=== PATIENT | male | born 1945 | race Caucasian/White ===

== ENCOUNTER 2017-02-10 12:25 | Inpatient (IN) ==
[2017-02-10 12:54] LABS: Basophils % 0.2 % (0.0-0.8); Eosinophils % 0.1 % (0.00-10.9); Hematocrit 39.9 VOL% (42.0-52.0); Hemoglobin 13.4 GM/DL (14.0-18.0); Immature Granulocytes % 0.9 %; Immature Granulocytes Absolute 0.19 #; Lymphocytes # 1.6 10*3/uL (1.4-4.0); Lymphocytes % 7.5 % (21.2-54.2); Mean Corpuscular HGB Conc 33.6 GM/DL (32-36); Mean Corpuscular Hemoglobin 28 PG (27-34); Mean Corpuscular Volume 83.5 FL (87-102); Mean Platelet Volume 10.1 FL (9.6-12.0); Monocytes # 1.2 10*3/uL (0.11-0.8); Monocytes % 5.7 % (1.7-12.7); Neutrophils # 18.7 10*3/uL (1.4-7.4); Neutrophils % 85.6 % (38.7-73.9); Platelet Count 210 T/CUMM (130-400); Red Blood Count 4.78 MC/CUMM (3.8-5.5); Red Cell Distribution Width 15.4 % (9.3-17.3); White Blood Count 21.8 T/CUMM (4-12)
[2017-02-10 13:18] LABS: Eosinophils 1 % (0-10); Lymphocytes 10 % (20-55); Platelet Estimate Adequate; Segmented Neutrophils 83 % (50-85)
[2017-02-10 13:19] LABS: Total Cells Counted 100
--- NOTE | 2017-02-10 13:29 | XRay Report ---
Portable chest Date: 02/10/2017 Clinical history: Generalized abdominal pain Comparison: 08/06/2011 Technique: Portable AP sitting chest Findings: The heart is borderline in size with more prominent left cardiac fat pad. Chronic scarring in the lungs with minimal atelectasis. Calcified granulomata. Stable mediastinum and osseous structures. Impression: Borderline cardiomegaly with more prominent left cardiac fat pad. Progressive atelectasis/infiltration at the left lung base. Follow-up chest x-ray may be helpful for further evaluation. PROCEDURE INTERPRETED AT [facility] DEPARTMENT OF RADIOLOGY Final Report Signed by: Dr. Stephani Garcia
--- NOTE | 2017-02-10 13:30 | XRay Report ---
XR abdomen 2V Indication: Abdominal pain. Abdomen 3 views: No comparison. Obesity required multiple imaging. No small bowel dilatation. Normal amount of stool and gas is seen in the colon. No suggestion of free air. Impression: Unremarkable bowel gas pattern. PROCEDURE INTERPRETED AT [facility] DEPARTMENT OF RADIOLOGY Final Report Signed by: Dalton Ho M.D.
[2017-02-10 13:32] LABS: Alanine Aminotransferase 20 U/L (16-61); Albumin 2.7 G/DL (3.4-5.0); Alkaline Phosphatase 87 U/L (45-117); Amylase 16 U/L (25-115); Aspartate Amino Transferase 11 U/L (0-37); Blood Urea Nitrogen 22 MG/DL (7-18); Calcium 8.6 MG/DL (8.5-10.1); Glucose 279 MG/DL (74-106); Magnesium 1.7 MG/DL (1.8-2.4); Osmolality,Calculated 280.2 MOS/KG (273-304); Potassium 3.5 MMOL/L (3.5-5.1); Sodium 134 MMOL/L (136-145); Total Protein 6.1 G/DL (6.4-8.3); Troponin I Only < 0.015 NG/ML (0.00-0.045)
--- NOTE | 2017-02-10 14:57 | Ultrasound Report ---
Exam: US gallbladder Date: 02/10/2017 1:38 PM Comparison: None Indication: Right upper quadrant pain Technique:[Multiple transabdominal real-time scans were obtained of the right upper quadrant. Color-flow scans obtained. Ultrasound images were captured and stored.] Findings: Hyperechoic foci in the gallbladder with posterior acoustical shadowing. Some of the gallstones do not move including a 13 mm finding the neck of the gallbladder. Wall of gallbladder measures 4.3 mm. CBD is normal in size measuring 5 mm. The liver is normal in size with fatty infiltration. Right kidney measures 104 mm complex no mass or hydronephrosis. The pancreas, aorta including the aortic bifurcation, and IVC are secured by bowel gas. Color flow documented in portal vein. Impression: Scans limited by patient's body size. Cholelithiasis. Gallstone in the neck of the gallbladder which does not move with minimal gallbladder wall thickening which could be related possible cholecystitis. Biliary scan with ejection fraction may be helpful for further evaluation. Fatty infiltration of the liver with pancreas and aorta obscured by bowel gas. PROCEDURE INTERPRETED AT [facility] DEPARTMENT OF RADIOLOGY Final Report Signed by: Dr. Stephani Garcia
--- NOTE | 2017-02-10 15:34 | Emergency Department Note ---
Arrival - Arrival Chief Complaint: Abdominal / Flank Pain Stated Complaint: rt side pain, n/v ED Nursing Triage Note: Pt c/o right sided abd pain with nausea and vomiting since Friday night. Pt is diaphoretic at triage. Mode of Arrival: Ambulatory Time Seen by Provider: 02/10/17 14:51 - History of Present Illness HPI Narrative: - History of Present Illness 71-year-old white male presents to ED with CC of: Right upper quadrant abdominal pain, nausea, vomiting, 3 day Fever: Has not checked temperature, afebrile in triage, complains of chills alternating with sweats over the weekend Keeping fluids down: yes Normal urine output: Decreased due to decreased intake PCP: Dr. Spencer PMHx: HTN, NIDDM, DVT, pulmonary embolism, GERD mass on kidney, Dr. Putnam is watching Allergies/Adverse Reactions: Allergies Allergy/AdvReac Type Severity Reaction Status Date / Time No Known Allergies Allergy Verified 06/08/15 14:46 Home Medications: Home Medications Medication Instructions Recorded Confirmed Type Lisinopril [Lisinopril] 10 mg PO DAILY 06/08/15 02/10/17 History dilTIAZem HCl [Diltiazem ER (24 240 mg PO DAILY 06/08/15 02/10/17 History hr)] hydroCHLOROthiazide 12.5 mg PO DAILY 06/08/15 02/10/17 History [Hydrochlorothiazide] metFORMIN [Glucophage] 500 mg PO BID W/MEALS 06/08/15 02/10/17 History Aspirin EC Tab 325 mg PO DAILY 02/29/16 02/10/17 History Fluoxetine HCl [Prozac] 40 mg PO DAILY 02/29/16 02/10/17 History Gluc Van/Chondro Van A/Vit C/Mn 1 each PO BID 02/29/16 02/10/17 History [Glucosamine Chondroitin Tab] Pramipexole [Mirapex] 0.25 mg PO BEDTIME 02/29/16 02/10/17 History glipiZIDE [Glipizide Xl] 5 mg PO DAILY 02/10/17 02/10/17 History Review of System - Review of System 12 point system: reviewed and no additional remarkable complaints except as stated - Review of System Constitutional: Present: chills, diaphoresis Gastrointestinal: Present: as per HPI, abdominal pain, nausea, vomiting. Absent : hematemesis, melena, hematochezia Neurological: Present: headache Medical,Surgical,& Family Hx - Medical History Cardio: History of: Hypertension Psychological: History of: Anxiety Disorders Neurology: History of: Vertigo No history of: Seizures HEENT: History of: Ear Problem ([place]), Eye Problem (Wears glasses) Endocrine: History of: Diabetes Mellitus (NIDDM) Respiratory: History of: Pulmonary Embolism (Blood clot traveled from RIGHT leg to lungs) Renal: History of: Renal Problems (has mass on kidney Dr. Putnam is watching for now) Gastrointestinal: History of: GERD Musculoskeletal: History of: Back/Neck Problems (Arthritis pain) - Surgical History HEENT Surgeries: Surgical HX of: Eye Surgery (Cataract surgery bilaterally) Abdominal Surgeries: Surgical HX of: Colonoscopy Reproductive Surgeries: Patient denies;: Genitourinary Surgery Orthopedic Surgeries: Surgical HX of;: Orthopedic Surgery (Microscopic knee surgery LEFT) - Family History Family History: Reports;: Family Heart Disease (Father) - Social History Smoking Status: Never smoker Exam Physical Examination: - General General appearance: alert, in no apparent distress - HEENT Present: atraumatic, normocephalic, normal inspection, PERRL, EOMI, mucous membranes moist - Neck Neck exam: Present: normal inspection, full ROM - Respiratory Respiratory exam: Present: normal lung sounds bilaterally - Cardiovascular Cardiovascular exam: Present: regular rate, normal rhythm, normal heart sounds - Abdominal Exam Abdominal exam: Present: soft, tenderness: Yes, RUQ, moderate, normal bowel sounds, positive Stewart sign. Absent: distention, guarding, trauma, - Extremities Exam Extremities exam: Present: normal inspection, full ROM. Absent: pedal edema, joint swelling, calf tenderness - Back Exam Back exam: Present: normal inspection, yes, right upper back - Neurological Exam Neurological exam: Present: alert, oriented X3, no neuorosensory deficits - Psychiatric Psychiatric exam: Present: normal affect, normal mood - Skin Skin exam: Present: warm, dry, intact Vital Signs: Vital Signs Temperature 98.1 F 02/10/17 17:37 Pulse Rate 77 02/10/17 17:37 Respiratory Rate 18 02/10/17 17:37 Blood Pressure 101/60 02/10/17 17:37 O2 Sat by Pulse Oximetry 93 L 02/10/17 17:37 Course - Consultations Time: 15:25 (Dr. Alvarez notified of pt presence. Said to call Dr. Mas since he has seen patient previously.) Time: 15:30 (Dr. Mas notified of pt presence and status. ) Time: 15:40 (Dr. Mas here. Will admit patient.) Results - Labs CBC & BMP: 02/10/17 12:45 02/10/17 12:45 Lab Results: I have reviewed the patients labs - Impressions CXR: Borderline cardiomegaly with more prominent left cardiac fat pad. Progressive atelectasis/infiltration at the left lung base. Follow-up chest x-ray may be helpful for further evaluation. ABdominal Ultrasound:Scans limited by patient's body size. Cholelithiasis. Gallstone in the neck of the gallbladder which does not move with minimal gallbladder wall thickening which could be related possible cholecystitis. Biliary scan with ejection fraction may be helpful for further evaluation. Fatty infiltration of the liver with pancreas and aorta obscured by bowel gas. - Diagnostic Findings Procedure: Chest x-ray: report reviewed by me (See Impressions above.), KUB x- ray: report reviewed by me (Unremarkable bowel gas pattern.), Ultrasound: report reviewed by me (See Impressions above.) Disposition Clinical Impression: Cholecystitis, acute with cholelithiasis, Obesity (BMI 35.0-39.9 without comorbidity) Case discussed with: patient Disposition: Still a Patient Condition: Stable Time of Disposition: 15:40 (Admit per Dr. Mas)
--- NOTE | 2017-02-10 15:52 | General Surg History&Physical ---
Assessment and Plan - Time spent with patient Time spent with patient: Less than 30 minutes (1) Cholecystitis, acute with cholelithiasis Status: Acute Assessment and plan: We will admit him and place him on IV fluids and IV antibiotics with plans to look at laparoscopic cholecystectomy tomorrow. Procedure and risks including his increased risk of conversion to open procedure because of his advanced age and morbid obesity and chronicity of symptoms were discussed with the patient. He also understands the risk of major complications such as injury to bile ducts or intestinal or liver or major bleeding, etc. Current Visit: Yes (2) Obesity (BMI 35.0-39.9 without comorbidity) Status: Acute Assessment and plan: This increases the chances of perioperative morbidity. He has been evaluated by Dr. Zavaleta for his heart within the last 6 months and by the patient's report had a normal stress test. Current Visit: Yes (3) DVT (deep venous thrombosis) Status: Acute Assessment and plan: He had deep vein thrombosis in the past but is no longer being treated for this. He is on aspirin for this. We will need to make sure that we take precautions for deep vein thrombosis perioperatively Current Visit: Yes Qualifiers: Chronicity: unspecified Laterality: unspecified laterality History of Present Illness Chief complaint: Abdominal pain History of present illness: Mr. Davies is a 71 year old male Who for 4 days has had right upper quadrant abdominal pain. Pain was severe and constant but is actually a little bit better today. This pain does not radiate. This pain is been associated with nausea. He had an ultrasound which showed a gallstone in the neck of his gallbladder and mild gallbladder wall thickening. He has not had fever or chills or jaundice. Home Medications Medication Instructions Recorded Confirmed Type Lisinopril [Lisinopril] 10 mg PO DAILY 06/08/15 02/10/17 History dilTIAZem HCl [Diltiazem ER (24 240 mg PO DAILY 06/08/15 02/10/17 History hr)] hydroCHLOROthiazide 12.5 mg PO DAILY 06/08/15 02/10/17 History [Hydrochlorothiazide] metFORMIN [Glucophage] 500 mg PO BID W/MEALS 06/08/15 02/10/17 History Aspirin EC Tab 325 mg PO DAILY 02/29/16 02/10/17 History Fluoxetine HCl [Prozac] 40 mg PO DAILY 02/29/16 02/10/17 History Gluc Van/Chondro Van A/Vit C/Mn 1 each PO BID 02/29/16 02/10/17 History [Glucosamine Chondroitin Tab] Pramipexole [Mirapex] 0.25 mg PO BEDTIME 02/29/16 02/10/17 History glipiZIDE [Glipizide Xl] 5 mg PO DAILY 02/10/17 02/10/17 History Allergies Allergy/AdvReac Type Severity Reaction Status Date / Time No Known Allergies Allergy Verified 06/08/15 14:46 Medical,Surgical,& Family Hx - Medical History Cardio: History of: Hypertension Psychological: History of: Anxiety Disorders Neurology: History of: Vertigo No history of: Seizures HEENT: History of: Ear Problem ([place]), Eye Problem (Wears glasses) Endocrine: History of: Diabetes Mellitus (NIDDM) Respiratory: History of: Pulmonary Embolism (Blood clot traveled from RIGHT leg to lungs) Renal: History of: Renal Problems (has mass on kidney Dr. Putnam is watching for now) Gastrointestinal: History of: GERD Musculoskeletal: History of: Back/Neck Problems (Arthritis pain) - Surgical History HEENT Surgeries: Surgical HX of: Eye Surgery (Cataract surgery bilaterally) Abdominal Surgeries: Surgical HX of: Colonoscopy Reproductive Surgeries: Patient denies;: Genitourinary Surgery Orthopedic Surgeries: Surgical HX of;: Orthopedic Surgery (Microscopic knee surgery LEFT) - Family History Family History: Reports;: Family Heart Disease (Father) - Social History Smoking Status: Never smoker Exam - Constitutional Vitals: Period Temp Pulse Resp BP Sys/Goins Pulse Ox Last 24 Hr 96.6 F-97.9 F 86-92 20-20 110-117/65-72 96-96 General appearance: no acute distress, morbidly obese - Head Head exam: Present: normocephalic - Eye Eye exam: Absent: scleral icterus Pupils: Present: LARISSA - ENT Mouth exam: Present: normal voice - Neck Neck exam: Present: trachea midline. Absent: thyromegaly - Respiratory Respiratory exam: Present: clear to auscultation bilaterally. Absent: accessory muscle use - Cardiovascular Cardiovascular exam: Present: RRR - GI/Abdominal GI/Abdominal exam: Present: tenderness. Absent: distended, guarding, mass, Stewart's sign, rebound - Back Exam Back exam: Present: normal inspection - Neurological Exam Neurological exam: Present: alert, oriented X3. Absent: motor sensory deficit Speech: Present: normal - Skin Skin exam: Present: normal color - Constitutional Constitutional: Absent: chills, fever(s), weight loss - Cardiovascular Cardiovascular: Absent: chest pain at rest, chest pain with activity, dyspnea, dyspnea on exertion, syncope - Respiratory Respiratory: Absent: cough, dyspnea, hemoptysis, dyspnea on exertion - Gastrointestinal Gastrointestinal: Present: abdominal pain, nausea. Absent: hematemesis, hematochezia, vomiting, jaundice - Genitourinary Genitourinary: Absent: dysuria, hematuria - Musculoskeletal Musculoskeletal: Present: back pain - Neurological Neurological: Absent: focal weakness, syncope - Endocrine Endocrine: Absent: polyuria Hematologic/Lymphatic: Absent: easy bleeding, easy bruising Results - Labs CBC & BMP: 02/10/17 12:45 02/10/17 12:45 Lab Results: I have reviewed the past 24 hour labs - Diagnostic Findings Procedure: Ultrasound: report reviewed by me
[2017-02-10] MEDS ORDERED: GLUCAGON 1 MG VIAL IM PRN (15:55)
[2017-02-10] MEDS ORDERED: DEXTROSE 50% 25 GM/50 ML VIAL IV PRN (15:55)
[2017-02-10] MEDS ORDERED: ONDANSETRON 4 MG/2 ML VIAL IV PRN (15:55)
[2017-02-10] MEDS ORDERED: ACETAMINOPHEN 325 MG TABLET PO PRN (15:55)
[2017-02-10] MEDS ORDERED: MORPHINE 2 MG/1 ML SYRINGE IV PRN (15:55)
[2017-02-10] MEDS: LACTATED RINGERS 1,000 ML IV SCH (17:53)
[2017-02-10] MEDS: PIPERACILLIN/TAZOBACTAM 3,375 MG in SODIUM CHLORIDE 0.9% 100 ML IV SCH (17:53)
[2017-02-11] MEDS: LACTATED RINGERS 1,000 ML IV SCH (01:37)
[2017-02-11] MEDS: PIPERACILLIN/TAZOBACTAM 3,375 MG in SODIUM CHLORIDE 0.9% 100 ML IV SCH ×3 (01:38→16:58)
[2017-02-11 06:22] LABS: Albumin 2.5 G/DL (3.4-5.0); Calcium 8.3 MG/DL (8.5-10.1); Osmolality,Calculated 285.8 MOS/KG (273-304); Potassium 4.2 MMOL/L (3.5-5.1); Total Protein 5.9 G/DL (6.4-8.3)
[2017-02-11 06:50] LABS: Basophils % 0.2 % (0.0-0.8); Eosinophils # 0.1 10*3/uL (0.0-0.87); Eosinophils % 0.3 % (0.00-10.9); Hematocrit 37.7 VOL% (42.0-52.0); Hemoglobin 12.5 GM/DL (14.0-18.0); Immature Granulocytes % 1.2 %; Immature Granulocytes Absolute 0.21 #; Lymphocytes # 1.3 10*3/uL (1.4-4.0); Lymphocytes % 7.3 % (21.2-54.2); Mean Corpuscular HGB Conc 33.2 GM/DL (32-36); Mean Corpuscular Hemoglobin 28 PG (27-34); Mean Corpuscular Volume 84.2 FL (87-102); Mean Platelet Volume 10.7 FL (9.6-12.0); Monocytes # 1.5 10*3/uL (0.11-0.8); Platelet Count 226 T/CUMM (130-400); Red Blood Count 4.48 MC/CUMM (3.8-5.5); Red Cell Distribution Width 15.3 % (9.3-17.3)
--- NOTE | 2017-02-11 07:21 | General Surgery Progress Note ---
Assessment and Plan (1) Cholecystitis, acute with cholelithiasis Status: Acute Assessment and plan: We will admit him and place him on IV fluids and IV antibiotics with plans to look at laparoscopic cholecystectomy tomorrow. Procedure and risks including his increased risk of conversion to open procedure because of his advanced age and morbid obesity and chronicity of symptoms were discussed with the patient. He also understands the risk of major complications such as injury to bile ducts or intestinal or liver or major bleeding, etc. 02/11: He has much less pain and feels better. He is not having fever but did have a low-grade temperature this morning. His white blood cell count is still markedly elevated. I discussed laparoscopic and possible open cholecystectomy with him in detail. Procedure and risks including increased chance of conversion to open procedure and also the small risk of major complications such as injury to common bile duct, bile leaks, bowel injury, liver injury or major bleeding, etc. He understands these risks and wishes to proceed today. I will hold his Lovenox this morning. Current Visit: Yes (2) Obesity (BMI 35.0-39.9 without comorbidity) Status: Acute Assessment and plan: This increases the chances of perioperative morbidity. He has been evaluated by Dr. Zavaleta for his heart within the last 6 months and by the patient's report had a normal stress test. Current Visit: Yes (3) DVT (deep venous thrombosis) Status: Acute Assessment and plan: He had deep vein thrombosis in the past but is no longer being treated for this. He is on aspirin for this. We will need to make sure that we take precautions for deep vein thrombosis perioperatively Current Visit: Yes Qualifiers: Chronicity: unspecified Laterality: unspecified laterality Subjective Patient reports: Present: feels better, pain is less. Absent: nausea, vomiting , shortness of breath, fever Exam - Constitutional Vitals: Period Temp Pulse Resp BP Sys/Goins Pulse Ox Last 24 Hr 96.6 F-99.6 F 77-92 18-20 101-134/60-81 91-96 General appearance: no acute distress, morbidly obese - Eye Eye exam: Absent: scleral icterus - Respiratory Respiratory exam: Absent: accessory muscle use - GI/Abdominal GI/Abdominal exam: Present: soft. Absent: distended, mass, tenderness, rebound Results - Labs CBC & BMP: 02/11/17 05:19 02/11/17 05:19 Lab Results: I have reviewed the past 24 hour labs
--- NOTE | 2017-02-11 07:21 | EKG Report ---
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
[2017-02-11] MEDS ORDERED: GLUCAGON 1 MG VIAL IM PRN ×2 (08:22→12:15)
[2017-02-11] MEDS ORDERED: DEXTROSE 50% 25 GM/50 ML VIAL IV PRN ×2 (08:22→12:15)
--- NOTE | 2017-02-11 09:08 | Hospitalist Consult Note ---
Assessment and Plan (1) Diabetes mellitus, type II Status: Acute Assessment and plan: Noted elevation in blood sugars since admission. We will obtain a hemoglobin A1c, start Accu-Cheks with sliding scale coverage, and consult diabetes management. The patient is n.p.o. we will manage the patient with insulin for now will review and restart home medications after surgery. Current Visit: Yes (2) HTN (hypertension) Status: Acute Assessment and plan: Blood pressures have been relatively stable since admission. We will continue to monitor. Patient is n.p.o.; will start as needed IV blood pressure meds if blood pressure increases. Will review home medications and restart medications after surgery. Current Visit: Yes History of Present Illness - Consult Narrative Reason for consult: Medical management History of present illness: This is a very pleasant 71-year-old male that presented to the Non-Urgent/[facility]- [facility] at [facility] on February 10, 2017 for the evaluation of right-sided abdominal pain with nausea and vomiting. Patient has a very complex medical history significant for hypertension, non-insulin- dependent diabetes mellitus, deep vein thrombosis, pulmonary embolism, renal mass, hypertension, depression, morbid obesity, osteoarthritis, anxiety, and GERD. Patient has a surgical history significant for bilateral cataract surgery removal, colonoscopy, orthoscopic left knee surgery. The patient reported the onset of the presenting complaint 3 days prior to presentation. Pertinent positives included: Nausea, vomiting, chills, diaphoresis, abdominal pain, decrease in oral intake, decreased urinary output, and fever. Pertinent negatives include: Syncope, chest pain, headache, changes in vision, unsteady gait, melena, and hematochezia. At the time of presentation, the patient was notably diaphoretic and complaining of intense right upper quadrant pain. Labs were obtained; complete blood cell count reported white blood cell count of 21.8, hemoglobin at 13.4, hematocrit 39.3, platelet count at 210, neutrophil % at 85.6, lymphocytes % at 7.5, neutrophil #at 18.7, monocytes #1.2 and lymphocytes at 10. Chemistry panel reported a sodium at 134, potassium at 3.5, chloride 98, carbon dioxide of 26, anion gap 13.5, BUN of 22, creatinine 1.5, glucose 279, magnesium 1.7, calcium 8.6, calculated osmolality 280.2, total protein 6.1, albumin 2.7, amylase 16, lipase 77, ALT at 11, AST 20 and alkaline phosphatase at 87. Cardiac enzymes reported her troponin at less than 0.015. Abdominal x-ray reported unremarkable bowel gas pattern. Chest x-ray reported borderline cardiomegaly with more prominent left cardiac fat pad, progressive atelectasis/ infiltration at the left lung base. Ultrasound of the gallbladder reported cholelithiasis, gallstone in the neck of the gallbladder which was not noted movable with minimal gallbladder wall thickening, and fatty infiltration of the liver but the pancreas and aorta obscured by bowel gas. Surgery consultation was requested. The patient was evaluated by surgery. The patient was subsequently admitted to surgical services for continuation of care. Due to the complexity of his comorbidities, hospital medicine was consulted to assist in the management during the clinical encounter. CC: Luis Antonio Mas III., - Home Medications and Allergies Home Medications: Home Medications Medication Instructions Recorded Confirmed Type Lisinopril [Lisinopril] 10 mg PO DAILY 06/08/15 02/10/17 History dilTIAZem HCl [Diltiazem ER (24 240 mg PO DAILY 06/08/15 02/10/17 History hr)] hydroCHLOROthiazide 12.5 mg PO DAILY 06/08/15 02/10/17 History [Hydrochlorothiazide] metFORMIN [Glucophage] 500 mg PO BID W/MEALS 06/08/15 02/10/17 History Aspirin EC Tab 325 mg PO DAILY 02/29/16 02/10/17 History Fluoxetine HCl [Prozac] 40 mg PO DAILY 02/29/16 02/10/17 History Gluc Van/Chondro Van A/Vit C/Mn 1 each PO BID 02/29/16 02/10/17 History [Glucosamine Chondroitin Tab] Pramipexole [Mirapex] 0.25 mg PO BEDTIME 02/29/16 02/10/17 History glipiZIDE [Glipizide Xl] 5 mg PO DAILY 02/10/17 02/10/17 History Allergies/Adverse Reactions: Allergies Allergy/AdvReac Type Severity Reaction Status Date / Time No Known Allergies Allergy Verified 06/08/15 14:46 Medical,Surgical,& Family Hx - Medical History Cardio: History of: Hypertension Psychological: History of: Anxiety Disorders Neurology: History of: Vertigo No history of: Seizures HEENT: History of: Ear Problem ([place]), Eye Problem (Wears glasses) Endocrine: History of: Diabetes Mellitus (NIDDM) Respiratory: History of: Pulmonary Embolism (Blood clot traveled from RIGHT leg to lungs) Renal: History of: Renal Problems (has mass on kidney Dr. Putnam is watching for now) Gastrointestinal: History of: GERD Musculoskeletal: History of: Back/Neck Problems (Arthritis pain) - Surgical History HEENT Surgeries: Surgical HX of: Eye Surgery (Cataract surgery bilaterally) Abdominal Surgeries: Surgical HX of: Colonoscopy Reproductive Surgeries: Patient denies;: Genitourinary Surgery Orthopedic Surgeries: Surgical HX of;: Orthopedic Surgery (Microscopic knee surgery LEFT) - Family History Family History: Reports;: Family Heart Disease (Father) - Social History Smoking Status: Never smoker Frequency of Alcohol Use: Occasionally Type of Drug Use: None Exam - Constitutional Vitals: Period Temp Pulse Resp BP Sys/Goins Pulse Ox Last 24 Hr 96.6 F-99.6 F 77-92 14-20 101-134/60-81 91-96 General appearance: morbidly obese - Head Head exam: Present: normal inspection, normocephalic, atraumatic - Eye Eye exam: Present: EOMI, conjunctival injection Pupils: Present: LARISSA, normal accommodation - ENT ENT exam: Present: normal exam, normal external ear exam, normal oropharynx - Neck Neck exam: Present: normal inspection. Absent: lymphadenopathy, meningismus, thyromegaly - Respiratory Respiratory exam: Present: clear to auscultation bilaterally. Absent: rales, rhonchi, stridor, wheezes - Cardiovascular Cardiovascular exam: Present: regular rate and rhythm. Absent: carotid bruit, diastolic murmur, gallop, JVD, rubs, systolic murmur - GI/Abdominal GI/Abdominal exam: Present: hypoactive bowel sounds, tenderness (Right lower quadrant tenderness), soft - Extremities Exam Extremities exam: Present: normal inspection, normal capillary refill, full ROM. Absent: edema - Back Exam Back exam: Present: normal inspection - Neurological Exam Neurological exam: Present: alert, oriented X3, CN II-XII intact - Psychiatric Psychiatric exam: Present: normal affect, normal mood - Skin Skin exam: Present: normal color, warm, dry Results - Labs CBC & BMP: 02/11/17 05:19 02/11/17 05:19 Lab Results: I have reviewed the past 24 hour labs Quality Measures - VTE Contraindication to Pharmacological VTE Prophylaxis: High Risk of Bleeding
[2017-02-11] MEDS ORDERED: METOPROLOL TARTRATE 5 MG/5 ML VIAL IV PRN (09:13)
[2017-02-11] MEDS ORDERED: MAGNESIUM SULF RIDER 4 GM in PREMIX 1 EACH IV PRN (09:14)
[2017-02-11] MEDS ORDERED: MAGNESIUM SULF RIDER 2 GM in PREMIX 1 EACH IV PRN (09:14)
[2017-02-11] MEDS ORDERED: ENOXAPARIN 40 MG/0.4 ML SYRINGE SUBCUT SCH (09:56)
[2017-02-11] MEDS: PANTOPRAZOLE 40 MG TABLET PO SCH (13:15)
[2017-02-11] MEDS: INSULIN REGULAR 100 UNIT/ML SUBCUT SCH ×3 (13:15→21:32)
[2017-02-11] MEDS ORDERED: MORPHINE 2 MG/1 ML SYRINGE IV ONE (16:27)
[2017-02-12] MEDS: PIPERACILLIN/TAZOBACTAM 3,375 MG in SODIUM CHLORIDE 0.9% 100 ML IV SCH ×3 (01:59→17:30)
[2017-02-12] MEDS ORDERED: LIDOCAINE 1%/EPI INJ 20 ML VIAL ONE (06:47)
[2017-02-12] MEDS ORDERED: TISSUE ADHESIVE 1 EACH APPLICATOR TOP ONE (06:47)
[2017-02-12] MEDS ORDERED: BUPIVACAINE MPF 0.25% /EPI 30 ML VIAL ONE (06:47)
[2017-02-12] MEDS: LACTATED RINGERS 1,000 ML IV SCH ×4 (06:55→23:43)
[2017-02-12] MEDS ORDERED: PROPOFOL 200 MG/20 ML VIAL IV ONE (07:00)
[2017-02-12] MEDS ORDERED: SUCCINYLCHOLINE 200 MG/10 ML VIAL ONE (07:00)
[2017-02-12] MEDS ORDERED: ONDANSETRON 4 MG/2 ML VIAL ONE (07:00)
[2017-02-12] MEDS ORDERED: NEOSTIGMINE 10 MG/10 ML VIAL ONE (07:00)
[2017-02-12] MEDS ORDERED: LIDOCAINE 2% 5 ML VIAL ONE (07:00)
[2017-02-12] MEDS ORDERED: ROCURONIUM 100 MG/10 ML VIAL IV ONE (07:00)
[2017-02-12] MEDS ORDERED: GLYCOPYRROLATE 0.4 MG/2 ML VIAL ONE (07:00)
--- NOTE | 2017-02-12 07:09 | Event Note ---
The patient did not want to have surgery yesterday afternoon because he did not want to wait n.p.o. for most of the day. For this reason we moved to surgery to first thing this morning so that he can eat yesterday. We have continued IV antibiotics and he feels better but still has some vague right upper quadrant abdominal tenderness. He is much less tender than before and I cannot palpate a mass. He appears stable for surgery. His EKG does not show any acute ischemic changes and he has not had chest pain or shortness of breath. We will go ahead with cholecystectomy. Procedure and risks were once again discussed with the patient and he wished to proceed.
[2017-02-12] MEDS ORDERED: MICROFIBRILLAR COLLAGEN POWDER 1 GM CAN TOP ONE (07:52)
[2017-02-12] MEDS: PANTOPRAZOLE 40 MG TABLET PO SCH (08:20)
[2017-02-12] MEDS: INSULIN REGULAR 100 UNIT/ML SUBCUT SCH ×4 (08:20→21:44)
--- NOTE | 2017-02-12 09:02 | Operative Note ---
Date of procedure: 02/12/17 Pre-op diagnosis: Acute cholecystitis Post-op diagnosis: same Procedure: Laparoscopic cholecystectomy with intraoperative cholangiogram (22 modifier) Findings and technique: After informed consent was obtained patient was brought the operating room placed in supine position. After successful induction of general anesthesia the patient's abdomen was prepped and draped in usual sterile fashion. Local anesthesia was infiltrated at the umbilicus where a transverse incision was made above the umbilicus and an open technique used to enter the fascia with a vertical incision in this morbidly obese patient. Dissection was carried through the peritoneum under direct vision and stay sutures were placed on Watts cannula inserted. The camera was inserted and the patient was noted to have an inflammatory mass in the right upper quadrant. His liver was initially not visible because of omentum stuck to the surface of the liver. Placed upper abdominal ports and had to place a laparoscopic fan retractor as well. The omentum was peeled off of the liver carefully using the suction cannula tip and this exposed the severely diffuse diseased appearing fundus the gallbladder which was thickened and inflamed and had spots of necrosis throughout its wall. The gallbladder was tense and I used cautery to create a hole in the fundus the gallbladder were suction cannula was inserted and the contents suctioned out to help decompress the gallbladder. The gallbladder was then grasped and retracted upwards. Adhesions between the omentum and inflammatory adhesions adherence of the omentum to the gallbladder was carefully bluntly and sharply dissected away along the body and neck of the gallbladder exposing the gallbladder neck. There was a stone impacted in the gallbladder neck which I milked back into the body of the gallbladder. The neck was grasped and the peritoneum and the neck incised dividing the peritoneum in this location and dissecting the tapering neck of the gallbladder as it formed the proximal cystic duct. I dissected out the cystic artery branches along the medial neck of the gallbladder and achieved a critical view of safety prior to incising any structures. Incision was made at the distal gallbladder neck where a cholangiogram was obtained under fluoroscopy which was normal and showed normal ductal anatomy. The structures medial to the gallbladder were not visible because of inflammation however the cholangiogram confirmed that I was working at the neck of the gallbladder and proximal cystic duct. Proximal cystic duct was doubly clipped and divided as were the cystic artery branches right on the gallbladder neck. The gallbladder was dissected free tediously from the liver bed. This was very difficult exposure and dissection because of the fatty liver. The gallbladder was placed in an Endo Catch bag with the stones and removed through the umbilical port site which had to be enlarged to accommodate the large stones in gallbladder. Right upper quadrant was liberally irrigated suctioned dry and hot electrocautery applied any oozing points. The liver bed was coated with Tisseel. This was inspected for 5-10 minutes and no bleeding or bile leakage noted. 10 mm NICOLE drain was placed in the subhepatic space because of the difficulty of dissection. This was brought out through the lowest 5 mm port site. The gas was evacuated from the abdomen and the fascial defect the umbilicus closed with a running 0 Monocryl suture. Skin incisions were closed with skin clips. This he appeared to tolerate the procedure well but this was a much more difficult procedure than usual because of his extreme morbid obesity and extensive inflammation of the gallbladder and fatty liver. These factors greatly added to the difficulty and complexity the case essentially tripling the expected operative time for this procedure. Anesthesia: GETA, local Surgeon / Physician: Luis Antonio Mas III. Estimated blood loss: other (75 mL) Specimens: other (Gallbladder) Condition: stable Disposition: PACU Results - Labs CBC & BMP: 02/11/17 05:19 02/11/17 05:19 Discharge Plan - Discharge Medications No Action Lisinopril [Lisinopril] 10 mg PO DAILY hydroCHLOROthiazide [Hydrochlorothiazide] 12.5 mg PO DAILY metFORMIN [Glucophage] 500 mg PO BID W/MEALS dilTIAZem HCl [Diltiazem ER (24 hr)] 240 mg PO DAILY Pramipexole [Mirapex] 0.25 mg PO BEDTIME Gluc Van/Chondro Van A/Vit C/Mn [Glucosamine Chondroitin Tab] 1 each PO BID Aspirin EC Tab 325 mg PO DAILY Fluoxetine HCl [Prozac] 40 mg PO DAILY glipiZIDE [Glipizide Xl] 5 mg PO DAILY - Follow Up or Referral - Forms/Instructions
[2017-02-12] MEDS ORDERED: LACTATED RINGERS 2,000 ML IV ONE (09:16)
[2017-02-12] MEDS ORDERED: SEVOFLURANE 1 UNIT/15 MINUTE INH ONE (09:16)
[2017-02-12] MEDS ORDERED: fentaNYL 100 MCG/2 ML VIAL ONE (09:17)
[2017-02-12] MEDS ORDERED: MIDAZOLAM 2 MG/2 ML VIAL ONE (09:17)
[2017-02-12] MEDS ORDERED: METOPROLOL TARTRATE 5 MG/5 ML VIAL IV ONE (09:18)
[2017-02-12] MEDS ORDERED: hydrALAZINE 20 MG/1 ML VIAL ONE (09:18)
[2017-02-12] MEDS ORDERED: KETOROLAC 30 MG/1 ML VIAL ONE (09:19)
--- NOTE | 2017-02-12 09:20 | Fluoroscopy Report ---
Exam: [place] cholangiogram in surgery Date: 02/11/2017 Indication: Intraoperative cholangiogram abdominal pain Comparison: Gallbladder sonogram 02/10/2017 Findings: 24.9 seconds fluoroscopy time and 150 images were obtained. Contrast administered by Dr. Chace LYON The left and right biliary radicals and common bile duct are intact. The contrast flows through the ampulla into the duodenum without obstruction. No obvious stones. Impression: 1. No intraoperative cholangiogram. PROCEDURE INTERPRETED AT [facility] DEPARTMENT OF RADIOLOGY Final Report Signed by: Dr. Lane Dumas
[2017-02-12] MEDS ORDERED: ONDANSETRON 4 MG/2 ML VIAL IV PRN (09:28)
[2017-02-12] MEDS ORDERED: HYDROmorphone 2 MG/1 ML VIAL IV PRN (09:28)
[2017-02-12] MEDS ORDERED: ACETAMINOPHEN 1,000 MG/100 ML VIAL IV ONE (09:41)
[2017-02-12] MEDS ORDERED: ACETAMINOPHEN INJ 1,000 MG in PREMIX 1 EACH IV ONE (09:41)
--- NOTE | 2017-02-12 10:18 | Anesthesia Post-Op ---
Anesthesia Post OP - Post Ansesthetic Evaluation Patient seen in post op: Yes Resp: within normal limits CV: within normal limits Mental: within normal limits Temp: within normal limits [id number]: within normal limits Nausea and Vomiting: within normal limits Pain: within normal limits
[2017-02-12 10:41] LABS: Hematocrit 35.7 VOL% (42.0-52.0); Hemoglobin 11.8 GM/DL (14.0-18.0)
[2017-02-12] MEDS ORDERED: DEXTROSE 50% 25 GM/50 ML VIAL IV PRN (11:10)
[2017-02-12] MEDS ORDERED: GLUCAGON 1 MG VIAL IM PRN (11:10)
--- NOTE | 2017-02-12 13:52 | Hospitalist Progress Note ---
Assessment and Plan - Time spent with patient Time spent with patient: Greater than 30 minutes (1) Cholecystitis, acute with cholelithiasis Status: Acute Assessment and plan: Defer to surgery. Current Visit: Yes (2) Diabetes mellitus, type II Status: Acute Assessment and plan: We will start the patient back in his oral medications. Current Visit: Yes (3) HTN (hypertension) Status: Acute Assessment and plan: Well-controlled. Continue current management. Current Visit: Yes Hospitalist: Subjective Interval history: Patient feels much better this morning. He is status post laparoscopic cholecystectomy. Exam - Constitutional Vitals: Period Temp Pulse Resp BP Sys/Goins Pulse Ox Last 24 Hr 98.0 F-100.7 F 79-90 16-22 119-159/63-89 90-97 General appearance: no acute distress, morbidly obese - Head Head exam: Present: normocephalic, atraumatic - Eye Eye exam: Present: EOMI Pupils: Present: LARISSA - ENT ENT exam: Present: normal exam - Neck Neck exam: Present: normal inspection - Respiratory Respiratory exam: Present: clear to auscultation bilaterally. Absent: rhonchi, wheezes - Cardiovascular Cardiovascular exam: Present: regular rate and rhythm. Absent: gallop, rubs, systolic murmur - GI/Abdominal GI/Abdominal exam: Present: normal bowel sounds, soft. Absent: distended, firm , guarding, tenderness, rebound - Extremities Exam Extremities exam: Present: normal inspection. Absent: calf tenderness, edema Results - Labs CBC & BMP: 02/12/17 10:32 02/11/17 05:19 Lab Results: I have reviewed the past 24 hour labs Quality Measures - VTE Contraindication to Pharmacological VTE Prophylaxis: High Risk of Bleeding
[2017-02-12] MEDS: metFORMIN 500 MG TABLET PO SCH (17:30)
[2017-02-12 17:37] LABS: Hematocrit 34.9 VOL% (42.0-52.0); Hemoglobin 11.5 GM/DL (14.0-18.0)
[2017-02-13] MEDS: PIPERACILLIN/TAZOBACTAM 3,375 MG in SODIUM CHLORIDE 0.9% 100 ML IV SCH ×3 (00:28→16:50)
[2017-02-13 01:53] LABS: Basophils # 0.1 10*3/uL (0.0-0.2); Basophils % 0.3 % (0.0-0.8); Eosinophils % 0.1 % (0.00-10.9); Hematocrit 34.6 VOL% (42.0-52.0); Hemoglobin 11.5 GM/DL (14.0-18.0); Immature Granulocytes % 1.6 %; Immature Granulocytes Absolute 0.23 #; Lymphocytes # 1.5 10*3/uL (1.4-4.0); Lymphocytes % 10.6 % (21.2-54.2); Mean Corpuscular HGB Conc 33.2 GM/DL (32-36); Mean Corpuscular Hemoglobin 28 PG (27-34); Mean Corpuscular Volume 84.4 FL (87-102); Mean Platelet Volume 10.1 FL (9.6-12.0); Monocytes # 1.5 10*3/uL (0.11-0.8); Monocytes % 10.1 % (1.7-12.7); Neutrophils # 11.3 10*3/uL (1.4-7.4); Neutrophils % 77.3 % (38.7-73.9); Platelet Count 216 T/CUMM (130-400); Red Cell Distribution Width 15.4 % (9.3-17.3); White Blood Count 14.6 T/CUMM (4-12)
[2017-02-13 02:22] LABS: Bilirubin,Total 0.7 MG/DL (0.2-1.0); Calcium 7.9 MG/DL (8.5-10.1); Osmolality,Calculated 277.1 MOS/KG (273-304); Potassium 4.2 MMOL/L (3.5-5.1); Total Protein 5.3 G/DL (6.4-8.3)
[2017-02-13] MEDS: metFORMIN 500 MG TABLET PO SCH ×2 (08:18→16:50)
[2017-02-13] MEDS: PANTOPRAZOLE 40 MG TABLET PO SCH (08:19)
[2017-02-13] MEDS: INSULIN REGULAR 100 UNIT/ML SUBCUT SCH ×4 (08:19→20:43)
--- NOTE | 2017-02-13 12:22 | Pathology Report from [facility] ---
[facility] [place] ACCESSION # : [id number] PATIENT NAME : Imtiaz Davies ORDERING DR : SUMA HENSON III, MD CLINICAL HX: Acute cholecystitis with cholelithiasis POST-OP DX: Same SPECIMEN INFO: Gallbladder GROSS DESCRIPTION: Received in formalin labeled IMTIAZ DAVIES is a partially opened gallbladder measuring 12.2 x up to 3 cm. The serosa is erythematous and focally ulcerated. The gallbladder wall measures 0.5 cm. The mucosa is hemorrhagic and ulcerated. Present are 3 oval yellow brown stones measuring 6.4 x 2 cm collectively. Reading Tutor tissue is submitted in one cassette. DIAGNOSIS FOR IMTIAZ DAVIES: GALLBLADDER, CHOLECYSTECTOMY: Acute and chronic cholecystitis; cholelithiasis. COLLECTED DATE: 02/12/2017 [facility] REPORT DATE: 02/13/2017 ELECTRONICALLY SIGNED BY: Rodger Gonzalez M.D. 02/13/2017 - 10:00:22 MANJU
--- NOTE | 2017-02-13 13:27 | Hospitalist Progress Note ---
Assessment and Plan - Time spent with patient Time spent with patient: Greater than 30 minutes (1) Cholecystitis, acute with cholelithiasis Status: Acute Assessment and plan: Defer to surgery. Continue antibiotics and at discharge he will most likely require GI tailored antibiotics such as Levaquin and metronidazole. Current Visit: Yes (2) Diabetes mellitus, type II Status: Acute Assessment and plan: We will start the patient back in his oral medications. Current Visit: Yes (3) HTN (hypertension) Status: Acute Assessment and plan: Well-controlled. Continue current management. Current Visit: Yes Hospitalist: Subjective Interval history: Mr. Ferrer has no complaints currently is doing very well and appears very comfortable. Exam - Constitutional Vitals: Period Temp Pulse Resp BP Sys/Goins Pulse Ox Last 24 Hr 96.2 F-99.3 F 81-89 18-20 133-187/74-97 90-99 General appearance: no acute distress, morbidly obese - Head Head exam: Present: normocephalic, atraumatic - Eye Eye exam: Present: EOMI Pupils: Present: LARISSA - ENT ENT exam: Present: normal exam - Neck Neck exam: Present: normal inspection - Respiratory Respiratory exam: Present: clear to auscultation bilaterally. Absent: rhonchi, wheezes - Cardiovascular Cardiovascular exam: Present: regular rate and rhythm. Absent: gallop, rubs, systolic murmur - GI/Abdominal GI/Abdominal exam: Present: normal bowel sounds, soft, other (NICOLE drain with continued serosanguineous drainage). Absent: distended, firm, guarding, tenderness, rebound - Extremities Exam Extremities exam: Present: normal inspection. Absent: calf tenderness, edema Results - Labs CBC & BMP: 02/13/17 01:26 02/13/17 01:26 Lab Results: I have reviewed the past 24 hour labs Quality Measures - VTE Contraindication to Pharmacological VTE Prophylaxis: High Risk of Bleeding Specialty Discharge - Follow Up or Referrals Follow up with: Luis Antonio Mas III., MD [Physician] -
[2017-02-13] MEDS: LACTATED RINGERS 1,000 ML IV SCH (20:45)
[2017-02-14] MEDS: PIPERACILLIN/TAZOBACTAM 3,375 MG in SODIUM CHLORIDE 0.9% 100 ML IV SCH ×2 (00:45→10:35)
[2017-02-14] MEDS: LACTATED RINGERS 1,000 ML IV SCH (00:47)
[2017-02-14 06:36] LABS: Basophils # 0.1 10*3/uL (0.0-0.2); Basophils % 0.6 % (0.0-0.8); Eosinophils # 0.2 10*3/uL (0.0-0.87); Eosinophils % 1.9 % (0.00-10.9); Hematocrit 37.5 VOL% (42.0-52.0); Hemoglobin 12.2 GM/DL (14.0-18.0); Immature Granulocytes % 4.3 %; Immature Granulocytes Absolute 0.48 #; Lymphocytes # 2.3 10*3/uL (1.4-4.0); Lymphocytes % 20.2 % (21.2-54.2); Mean Corpuscular HGB Conc 32.5 GM/DL (32-36); Mean Corpuscular Hemoglobin 28 PG (27-34); Mean Corpuscular Volume 86.6 FL (87-102); Mean Platelet Volume 11.7 FL (9.6-12.0); Monocytes % 8.8 % (1.7-12.7); Neutrophils # 7.2 10*3/uL (1.4-7.4); Neutrophils % 64.2 % (38.7-73.9); Platelet Count 209 T/CUMM (130-400); Red Blood Count 4.33 MC/CUMM (3.8-5.5); Red Cell Distribution Width 15.5 % (9.3-17.3); White Blood Count 11.2 T/CUMM (4-12)
[2017-02-14 06:53] LABS: Band Neutrophils 1 % (0-10); Eosinophils 2 % (0-10); Lymphocytes 25 % (20-55); Segmented Neutrophils 67 % (50-85); Total Cells Counted 100
[2017-02-14 06:54] LABS: Hypochromasia 1+; Microcytosis Slight; Platelet Estimate Normal
[2017-02-14 07:03] VITALS: BP 160/81
[2017-02-14 07:46] LABS: Osmolality,Calculated 282.4 MOS/KG (273-304)
--- NOTE | 2017-02-14 08:13 | Event Note ---
He looks and feels well and desires to go home today. He wanted to go home yesterday but his family was upset about the idea of discharging him yesterday. He is afebrile with stable vital signs and there is nothing but serosanguineous drainage in his NICOLE drain. His white blood cell count is normal. I think he should be fine for discharge with plans to follow-up in my office in about 1 week.
[2017-02-14] MEDS: INSULIN REGULAR 100 UNIT/ML SUBCUT SCH (09:01)
--- NOTE | 2017-02-14 09:01 | Discharge Summary ---
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 Chace LYON on 2016 with right upper quadrant abdominal pain. The ultrasound showed a gallstone in the neck of the gallbladder and mild gallbladder wall thickening. Patient was started on antibiotics, pain and nausea control. He was taken to the operating room on 02/12/2017 for laparoscopic cholecystectomy with intraoperative cholangiogram. Patient tolerated the procedure well but it was a much more difficult procedure for Dr. Chace LYON because of patient's extreme morbid obesity and extensive inflammation of the gallbladder and fatty liver. Patient has done well postoperatively. He has been afebrile and his vital signs are stable. There is been minimal serosanguineous drainage from his NICOLE drain. The hospitalists were consulted to assist with his medical management. His blood pressure and blood sugars have been manageable. Drain will be DC'd today and patient will be discharged home on antibiotics and pain medicine. He will need follow-up with Dr. Chace LYON in his office in 1-2 weeks and follow-up with his primary care physician as well. Patient's case was discussed with Dr. Chace LYON, Dr. Garces the hospitalist, patient and nursing staff. Care coordination, chart review, and completed discharge paperwork took approximately 37 minutes. - Time spent with patient Time with patient DS: Greater than 30 minutes Diagnosis - Discharge Diagnosis (1) Cholecystitis, acute with cholelithiasis Status: Resolved (2) Obesity (BMI 35.0-39.9 without comorbidity) Status: Chronic (3) Diabetes mellitus, type II Status: Chronic (4) HTN (hypertension) Status: Chronic Specialty Discharge - Follow Up or Referrals Follow up with: Luis Antonio Mas III., MD [Physician] - Discharge Plan - Discharge Data Disposition: Discharge Diet: diabetic diet, heart healthy Activity: resume usual activities as tolerated Hygiene: may shower Driving: other (No driving if taking pain pills) Contact your physician if you experience:: fever over 101, Nausea/Vomiting - Discharge Medications New HYDROcodone/ACETAMIN 7.5-325 [[place] 7.5-325] 1 tablet PO Q4H PRN #30 tablet PRN Reason: Pain Moderate (4-7) Levofloxacin Tab [Levaquin Tab] 500 mg PO DAILY #7 tablet Continue Lisinopril 10 mg PO DAILY hydroCHLOROthiazide [Hydrochlorothiazide] 12.5 mg PO DAILY metFORMIN [Glucophage] 500 mg PO BID W/MEALS dilTIAZem HCl [Diltiazem ER (24 hr)] 240 mg PO DAILY Pramipexole [Mirapex] 0.25 mg PO BEDTIME Gluc Van/Chondro Van A/Vit C/Mn [Glucosamine Chondroitin Tab] 1 each PO BID Aspirin EC Tab 325 mg PO DAILY Fluoxetine HCl [Prozac] 40 mg PO DAILY glipiZIDE [Glipizide Xl] 5 mg PO DAILY - Follow Up or Referral Follow Up: Luis Antonio Mas III., MD [Physician] - 1 Week - Forms/Instructions Instructions: Laparoscopic Cholecystectomy (DC) Exam - Constitutional Vitals: Period Temp Pulse Resp BP Sys/Goins Pulse Ox Last 24 Hr 96.2 F-98.9 F 80-94 18-20 138-160/81-86 90-95 Exam: 71-year-old male, no acute distress, alert and oriented Chest clear CV regular rate and rhythm Abdomen obese, properly tender, incisions look good Extremities no edema Discharge Results Procedures and tests throughout hospitalization: Pending Orders 02/12/17 08:42 Abscess Culture Routine Anaerobic Culture Routine Labs on day of discharge: Labs from last 24 hours 02/14/17 02/14/17 02/14/17 06:53 05:59 05:59 WBC 11.2 RBC 4.33 Hgb 12.2 L Hct 37.5 L MCV 86.6 L MCH 28 MCHC 32.5 RDW 15.5 Plt Count 209 MPV 11.7 Neut % (Auto) 64.2 Lymph % (Auto) 20.2 L [place] % (Auto) 8.8 Eos % (Auto) 1.9 Baso % (Auto) 0.6 Neut # (Auto) 7.2 Lymph # (Auto) 2.3 [place] # (Auto) 1.0 H Eos # (Auto) 0.2 Baso # (Auto) 0.1 Total Counted 100 Immature Gran % 4.3 Nucleated RBC % 0.0 Immature Gran # 0.48 Segmented Neutrophils 67 Band Neutrophils 1 Lymphocytes 25 Monocytes 5 Eosinophils 2 Nucleated RBCs # 0.00 Platelet Estimate Normal Hypochromasia 1+ Microcytosis Slight Morphology Comment Sodium 140 Potassium 5.0 Chloride 102 Carbon Dioxide 28 Anion Gap 15.0 BUN 16 Creatinine 1.00 GFR Calculation 121 BUN/Creatinine Ratio 16.00 Glucose 144 H POC Glucose 156 H Calculated Osmolality 282.4 Calcium 8.0 L 02/13/17 02/13/17 02/13/17 20:09 16:13 11:32 WBC RBC Hgb Hct MCV MCH MCHC RDW Plt Count MPV Neut % (Auto) Lymph % (Auto) [place] % (Auto) Eos % (Auto) Baso % (Auto) Neut # (Auto) Lymph # (Auto) [place] # (Auto) Eos # (Auto) Baso # (Auto) Total Counted Immature Gran % Nucleated RBC % Immature Gran # Segmented Neutrophils Band Neutrophils Lymphocytes Monocytes Eosinophils Nucleated RBCs # Platelet Estimate Hypochromasia Microcytosis Morphology Comment Sodium Potassium Chloride Carbon Dioxide Anion Gap BUN Creatinine GFR Calculation BUN/Creatinine Ratio Glucose POC Glucose 188 H 164 H 220 H Calculated Osmolality Calcium Preliminary micro results at discharge 02/12/17 08:42 Abscess Culture - Preliminary Gallbladder Gram Negative Rods DS: Provider Date of admission: 02/12/17 09:03 Primary care physician: Lauren Spencer Attending physician on admission: Luis Antonio Mas III., Consults: 02/10/17 15:57 Consult to Physician [CONS] Routine Comment: Management of diabetes Consulting Provider: Consulting Provider Notified: Yes When should Consulting Provider be notified: Now Consult to Specialist Group: Hospitalist When should Consulting Provider be notified: Now Person Notified: chato mak called Date Notified: 02/11/17 Time Notified: 08:22 02/11/17 08:23 Consult to [facility], Educator [CONS] Routine Reason for Corporate Paralegal: Diabetes Education Discharging clinician: LIZBETH Mai Expected date of discharge: 02/14/17
[2017-02-14] MEDS: metFORMIN 500 MG TABLET PO SCH (09:02)
[2017-02-14] MEDS: PANTOPRAZOLE 40 MG TABLET PO SCH (09:02)
== END 2017-02-14 11:25 | disposition home or self-care (01) | DRG 418 ==
LOC: N.ED 12:25 → N.EDINP 12:25 → N.3E 17:25
PROVIDERS: ADMIT Surgery; ATTEND Surgery
PROC: LAPCHOL (2017-02-12 07:00)